=== PATIENT | male | born 1980 | race African-American/Black ===

== ENCOUNTER 2025-02-24 09:51 | Emergency (ER) | payer MEDICAID ==
[~2025-02-24] VITALS: Ht 190.5 cm; Wt 129.0 kg
[2025-02-24 10:01] VITALS: TEMP 36.9; O2SAT 99
[2025-02-24] MEDS ORDERED: NAPR-681 MT (11:58)
[2025-02-24] MEDS: IBUPROFEN 400MG TABLET PO ONE (12:27)
[2025-02-24 12:46] VITALS: BP 107/68; PULSE 90; RESP 18; O2SAT 100
== END 2025-02-24 13:07 | disposition home or self-care (01) ==
LOC: ER 09:51
DX: M25.561 Pain in right knee (principal); Z79.1 Long term (current) use of non-steroidal anti-inflammatories (NSAID); W18.2XXA Fall in (into) shower or empty bathtub, initial encounter; Y93.E1 Activity, personal bathing and showering; Y92.89 Other specified places as the place of occurrence of the external cause; Y99.8 Other external cause status
CPT/HCPCS: 73560; 99283